=== PATIENT | female | born 1975 | race Caucasian/White ===

== ENCOUNTER 2022-07-09 09:36 | Emergency (ER) | payer BC ==
[2022-07-09] MEDS ORDERED: GI Cocktail Oral Solution 30 ML PO ONE (10:40)
[2022-07-09 10:48] LABS: BASOPHILS ABSOLUTE AUTO 0.01 K/uL (0.02-0.10); BASOPHILS PERCENT AUTO 0.1 % (0.0-0.5); EOSINOPHILS ABSOLUTE AUTO 0.09 K/uL (0.04-0.40); EOSINOPHILS PERCENT AUTO 1.2 % (1.0-5.0); HEMATOCRIT 39.7 % (37.0-47.0); HEMOGLOBIN 13.8 g/dL (11.5-16.5); LYMPHOCYTES ABSOLUTE AUTO 2.83 K/uL (1.50-4.00); LYMPHOCYTES PERCENT AUTO 38.8 % (20.0-40.0); MEAN CORPUSCULAR HEMOGLOBIN 34.7 pg (27.0-32.0); MEAN CORPUSCULAR HGB CONC 34.8 g/dL (31.0-35.0); MEAN CORPUSCULAR VOLUME 100 fL (76-96); MEAN PLATELET VOLUME 10.7 fL (6.0-10.0); MONOCYTES ABSOLUTE AUTO 0.46 K/uL (0.20-0.80); MONOCYTES PERCENT AUTO 6.3 % (3.0-10.0); NEUTROPHILS PERCENT AUTO 53.6 % (45.0-70.0); PLATELET COUNT,PLT 275 K/uL (150-500); RED BLOOD CELL COUNT 3.98 M/uL (3.80-5.80); RED CELL DISTRIBUTION WIDTH 12.1 % (11.0-16.0); WHITE BLOOD CELL COUNT,WBC 7.3 K/uL (4.0-11.0)
[2022-07-09 11:05] LABS: A/G RATIO 0.9 (0.8-2.0); ALBUMIN 3.7 g/dL (3.4-5.0); ANION GAP 14.1 mmol/L (5.0-15.0); BILIRUBIN TOTAL 0.3 mg/dL (0.0-1.0); BUN/CREATININE RATIO 15.7 (6-25); C-REACTIVE PROTEIN 3.4 mg/L (0.0-3.0); CALCIUM 8.7 mg/dL (8.5-10.1); CARBON DIOXIDE,CO2 23.5 mmol/L (21.0-32.0); CREATININE 0.7 mg/dL (0.55-1.02); EST CRCL DRUG DOSING (CG) 74.74 mL/min; POTASSIUM,K 3.6 mmol/L (3.5-5.1); PROTEIN TOTAL,TP 7.7 g/dL (6.4-8.2); TROPONIN I HIGH SENSITIVITY 32.4 pg/ml (<=60.4); TSH ULTRASENSITIVE 1.914 uIU/mL (0.358-3.740)
[2022-07-09] MEDS ORDERED: Aluminum Hydroxide/Magnesium Hydroxide/Simethicone Susp 30 ML Cup PO STA (11:05)
== END 2022-07-09 12:25 | disposition home or self-care (01) ==
LOC: LB.ED 09:36
DX: K21.9 Gastro-esophageal reflux disease without esophagitis (principal); Z88.6 Allergy status to analgesic agent
CPT/HCPCS: 36415; 80053; 84443; 84484; 85025; 85651; 86140; 99284; A9270